=== PATIENT | male | born 1945 | race Caucasian/White ===

== ENCOUNTER 2023-11-19 08:20 | Outpatient (CLI) | payer MEDICARE, OTHER ==
[~2023-11-19 08:20] MED LIST: ALBUTEROL SULFATE 2.5MG/0.5ML INH NEB SOLN INH PRN; EPINEPHrine INJ 1 MG/ML 1ML AMP IM PRN; NS 1,000 ML IV SCH; diphenhydrAMINE 50MG/ML VIAL IV PRN; methylPREDNISolone 125MG 2ML VIAL IV PRN
[2023-11-19] MEDS ORDERED: methylPREDNISolone 40MG 1ML VIAL As Ordered ONE (08:28)
[2023-11-19] MEDS ORDERED: diphenhydrAMINE 25MG CAP As Ordered ONE (08:29)
[2023-11-19] MEDS: diphenhydrAMINE 25MG PO PRIOR TO INFUSION PO ONE (08:35)
[2023-11-19] MEDS: methylPREDNISolone 40MG 1ML VIAL IV ONE (08:35)
[2023-11-19] MEDS: inFLIXimab INJECTION 900 MG in NS 160 ML IV ONE (09:37)
== END 2023-11-19 10:50 ==
LOC: M INFU 08:20
PROVIDERS: ATTEND Physician Assistant
DX: K50.819 Crohn's disease of both small and large intestine with unspecified complications (principal); Z88.8 Allergy status to other drugs, medicaments and biological substances
CPT/HCPCS: 96367; 96413; 96415; J1745; J2919

== ENCOUNTER 2024-01-17 08:13 | Outpatient (CLI) | payer MEDICARE, OTHER ==
[~2024-01-17] VITALS: Ht 175.3 cm; Wt 86.8 kg
[~2024-01-17 08:13] MED LIST changes: -ALBUTEROL SULFATE 2.5MG/0.5ML INH NEB SOLN INH PRN; -EPINEPHrine INJ 1 MG/ML 1ML AMP IM PRN; -diphenhydrAMINE 50MG/ML VIAL IV PRN; -methylPREDNISolone 125MG 2ML VIAL IV PRN
[2024-01-17 08:15] VITALS: BP 147/88; O2SAT 98
[2024-01-17] MEDS: diphenhydrAMINE 25MG PO PRIOR TO INFUSION PO ONE (09:03)
[2024-01-17] MEDS: methylPREDNISolone 40MG 1ML VIAL IV ONE (09:04)
[2024-01-17] MEDS: inFLIXimab INJECTION 900 MG in NS 160 ML IV ONE (09:34)
[2024-01-17 11:38] VITALS: BP 146/76; O2SAT 100
== END 2024-01-17 11:40 ==
LOC: M INFU 08:13
PROVIDERS: ATTEND Physician Assistant
DX: K50.90 Crohn's disease, unspecified, without complications (principal); Z88.8 Allergy status to other drugs, medicaments and biological substances
CPT/HCPCS: 96367; 96413; 96415; J1745; J2919

== ENCOUNTER 2024-03-13 08:15 | Outpatient (CLI) | payer MEDICARE, OTHER ==
[~2024-03-13] VITALS: Ht 175.3 cm; Wt 89.0 kg
[2024-03-13 08:15] VITALS: BP 158/71; O2SAT 98
[2024-03-13] MEDS: diphenhydrAMINE 25MG PO PRIOR TO INFUSION PO ONE (08:33)
[2024-03-13] MEDS: inFLIXimab INJECTION 900 MG in NS 160 ML IV ONE (09:08)
[2024-03-13 09:36] VITALS: BP 133/76; O2SAT 97
[2024-03-13 10:15] VITALS: BP 164/78; O2SAT 98
== END 2024-03-13 10:27 ==
LOC: M INFU 08:15
PROVIDERS: ATTEND Physician Assistant
DX: K50.90 Crohn's disease, unspecified, without complications (principal); Z88.8 Allergy status to other drugs, medicaments and biological substances
CPT/HCPCS: 96413; J1745

== ENCOUNTER 2024-05-08 08:06 | Outpatient (CLI) | payer OTHER, MEDICARE ==
[~2024-05-08] VITALS: Ht 175.3 cm; Wt 87.2 kg
[2024-05-08] MEDS ORDERED: NS (Normal Saline) 0.9% 1,000 ML IV SCH (08:30)
[2024-05-08 08:44] VITALS: BP 144/75; TEMP 96.6; O2SAT 97
[2024-05-08] MEDS: methylPREDNISolone 40MG 1ML VIAL IV ONE (09:13)
[2024-05-08] MEDS: diphenhydrAMINE 25MG PO PRIOR TO INFUSION PO ONE (09:13)
[2024-05-08] MEDS: inFLIXimab INJECTION 900 MG in NS 160 ML IV ONE (09:32)
[2024-05-08 10:33] VITALS: BP 149/72; O2SAT 98
== END 2024-05-08 10:34 ==
LOC: M INFU 08:06
PROVIDERS: ATTEND Physician Assistant
DX: M46.46 Discitis, unspecified, lumbar region (principal); Z88.8 Allergy status to other drugs, medicaments and biological substances
CPT/HCPCS: 96375; 96413; J1745; J2919

== ENCOUNTER 2024-07-11 07:20 | Outpatient (CLI) | payer MEDICARE, OTHER ==
[~2024-07-11] VITALS: Ht 175.3 cm; Wt 83.6 kg
[2024-07-11 07:26] VITALS: BP 178/83; O2SAT 94
[2024-07-11] MEDS ORDERED: NS (Normal Saline) 0.9% 1,000 ML IV SCH (07:30)
[2024-07-11] MEDS: methylPREDNISolone 40MG 1ML VIAL IV ONE (07:46)
[2024-07-11] MEDS: ACETAMINOPHEN 650MG PO PRIOR TO INFUSION PO ONE (07:46)
[2024-07-11] MEDS: diphenhydrAMINE 50MG PO PRIOR TO INFUSION PO ONE (07:46)
[2024-07-11] MEDS: inFLIXimab INJECTION 900 MG in NS 160 ML IV ONE (08:06)
[2024-07-11 10:12] VITALS: BP 146/71; O2SAT 97
== END 2024-07-11 10:10 ==
LOC: M INFU 07:20
PROVIDERS: ATTEND Physician Assistant
DX: K50.90 Crohn's disease, unspecified, without complications (principal); Z88.8 Allergy status to other drugs, medicaments and biological substances
CPT/HCPCS: 96375; 96413; 96415; J1745; J2919

== ENCOUNTER → 2024-09-05 | Outpatient (CLI) | payer MEDICARE, OTHER ==
[~2024-09-05] VITALS: Ht 175.3 cm; Wt 83.1 kg
[~2024-09-05] MED LIST changes: +NS (Normal Saline) 0.9% 1,000 ML IV SCH; -NS 1,000 ML IV SCH
[2024-09-05 08:00] VITALS: BP 167/78; TEMP 96.9; O2SAT 98
[2024-09-05] MEDS: diphenhydrAMINE 50MG PO PRIOR TO INFUSION PO ONE (08:24)
[2024-09-05] MEDS: ACETAMINOPHEN 650MG PO PRIOR TO INFUSION PO ONE (08:24)
[2024-09-05] MEDS: methylPREDNISolone 40MG 1ML VIAL IV ONE (09:00)
[2024-09-05] MEDS: inFLIXimab INJECTION 900 MG in NS 160 ML IV ONE (09:18)
[2024-09-05 10:30] VITALS: BP 151/80; O2SAT 97
== END ==
LOC: M INFU 07:57
PROVIDERS: ATTEND Physician Assistant
DX: K50.90 Crohn's disease, unspecified, without complications (principal); Z88.8 Allergy status to other drugs, medicaments and biological substances
CPT/HCPCS: 96375; 96413; J1745; J2919

== ENCOUNTER 2024-12-26 09:05 | Outpatient (CLI) | payer OTHER ==
[~2024-12-26] VITALS: Ht 175.3 cm; Wt 81.3 kg
[2024-12-26 09:15] VITALS: BP 142/67; O2SAT 96
[2024-12-26] MEDS: ACETAMINOPHEN 650MG PO PRIOR TO INFUSION PO ONE (09:29)
[2024-12-26] MEDS: diphenhydrAMINE 50MG PO PRIOR TO INFUSION PO ONE (09:29)
[2024-12-26] MEDS ORDERED: NS (Normal Saline) 0.9% 1,000 ML IV SCH (09:30)
[2024-12-26] MEDS: inFLIXimab INJECTION 900 MG in NS 160 ML IV ONE (10:03)
[2024-12-26 11:09] VITALS: BP 138/74; O2SAT 98
== END 2024-12-26 11:10 | disposition home or self-care (01) ==
LOC: M INFU 09:05
PROVIDERS: ATTEND Physician Assistant
DX: K50.90 Crohn's disease, unspecified, without complications (principal); Z88.8 Allergy status to other drugs, medicaments and biological substances
CPT/HCPCS: 96413; J1745; J2919

== ENCOUNTER 2025-02-21 09:22 | Outpatient (CLI) | payer MEDICARE, OTHER ==
[~2025-02-21] VITALS: Ht 175.3 cm; Wt 81.0 kg
[2025-02-21 09:30] VITALS: BP 142/80; O2SAT 98
[2025-02-21] MEDS ORDERED: ACETAMINOPHEN 650MG PO PRIOR TO INFUSION PO ONE (09:30)
[2025-02-21] MEDS ORDERED: NS (Normal Saline) 0.9% 1,000 ML IV SCH (09:30)
[2025-02-21] MEDS: diphenhydrAMINE 50MG PO PRIOR TO INFUSION PO ONE (10:09)
[2025-02-21] MEDS: inFLIXimab INJECTION 900 MG in NS 160 ML IV ONE (10:33)
[2025-02-21 11:45] VITALS: BP 160/70; O2SAT 98
== END 2025-02-21 11:45 ==
LOC: M INFU 09:22
PROVIDERS: ATTEND Physician Assistant
DX: K50.90 Crohn's disease, unspecified, without complications (principal); Z88.8 Allergy status to other drugs, medicaments and biological substances
CPT/HCPCS: 96375; 96413; J1745; J2919

== ENCOUNTER 2025-04-04 09:16 | Outpatient (CLI) | payer MEDICARE, OTHER ==
[~2025-04-04] VITALS: Ht 172.7 cm; Wt 80.9 kg
[2025-04-04] MEDS ORDERED: NS (Normal Saline) 0.9% 1,000 ML IV SCH (09:30)
[2025-04-04 09:35] VITALS: BP 160/89; O2SAT 99
[2025-04-04] MEDS: ACETAMINOPHEN 650MG PO PRIOR TO INFUSION PO ONE (09:48)
[2025-04-04] MEDS: diphenhydrAMINE 50MG PO PRIOR TO INFUSION PO ONE (09:48)
[2025-04-04] MEDS: inFLIXimab INJECTION 900 MG in NS 160 ML IV ONE (10:18)
[2025-04-04 11:20] VITALS: BP 160/89; TEMP 36.7; O2SAT 99
[2025-04-04 11:25] VITALS: BP 138/80; O2SAT 100
== END 2025-04-04 11:20 | disposition home or self-care (01) ==
LOC: M INFU 09:16
PROVIDERS: ATTEND Physician Assistant
DX: K50.90 Crohn's disease, unspecified, without complications (principal); Z88.8 Allergy status to other drugs, medicaments and biological substances
CPT/HCPCS: 96375; 96413; J1745; J2919